=== PATIENT | female | born 1975 | race Caucasian/White ===

== ENCOUNTER 2017-07-29 18:02 | Emergency (ER) | payer OTHER ==
[2017-07-29] MEDS ORDERED: TORAdol 30 mg Injection IM ONE (18:13)
[2017-07-29] MEDS ORDERED: Norflex 60 MG/2 ML IM ONE (18:13)
[2017-07-29] MEDS ORDERED: Norflex 60 MG/2 ML ONE (18:17)
[2017-07-29] MEDS ORDERED: TORAdol 30 mg Injection ONE (18:17)
--- NOTE | 2017-07-29 18:19 | ERPHSYRPT ---
- History of Present Illness Time Seen by Provider: 07/29/17 18:07 Source: patient Exam Limitations: no limitations Physician History: patient developed lower back pain x 4 days; no known injury; does lifting at work but no isolated incident noted; progressive worse over time; no change voiding or BM; no fever or fall or trauma; no prior hx; no numbness or paraesthesia Timing/Duration: day(s) (4), worse Method of Injury: unknown Quality: aching Back Pain Location: lumbar spine (lower midline) Severity of Pain-Max: severe Severity of Pain-Current: severe Modifying Factors: Improves With: other (bending; squatting and sitting aggravate it) Associated Symptoms: lower back pain Previous symptoms: no prior history Allergies/Adverse Reactions: amoxicillin [From Augmentin] Allergy (Verified 07/29/17 18:15) clavulanic acid [From Augmentin] Allergy (Verified 07/29/17 18:15) - Review of Systems Constitutional: No Symptoms Eyes: No Symptoms Ears, Nose, & Throat: No Symptoms Respiratory: No Cough, No Dyspnea, No Wheezing Cardiac: No Chest Pain, No Palpitations, No Syncope Abdominal/Gastrointestinal: No Abdominal Pain, No Nausea, No Vomiting, No Diarrhea Genitourinary Symptoms: No Dysuria, No Frequency, No Hematuria, No Hesitancy, No Incontinence Musculoskeletal: Back Pain (mid lower back), No Neck Pain, No Fall, No Injury Skin: No Symptoms Neurological: No Symptoms Psychological: No Symptoms Endocrine: No Symptoms - Past Medical History Pertinent Past Medical History: No - Past Surgical History Past Surgical History: No - Social History Smoking Status: Current every day smoker Exposure to second hand smoke: Yes Alcohol Use: Socially Drug Use: none Patient Lives Alone: No Significant Family History: no pertinent family hx - Female History Hx Now: No - Nursing Vital Signs Nursing Vital Signs: Initial Vital Signs Temperature 97.9 F 07/29/17 18:16 Pulse Rate 100 H 07/29/17 18:16 Respiratory Rate 18 07/29/17 18:16 Blood Pressure 139/93 07/29/17 18:16 O2 Sat by Pulse Oximetry 98 07/29/17 18:16 Pain Scale Pain Intensity 9 - Physical Exam General Appearance: moderate distress (lower back pain), alert, thin Eye Exam: PERRL/EOMI, eyes nml inspection, No photophobia Ears, Nose, Throat Exam: normal ENT inspection, TMs normal, pharynx normal, moist mucous membranes Neck Exam: normal inspection, non-tender, supple, full range of motion, No JVD Respiratory Exam: normal breath sounds, lungs clear, airway intact, No chest tenderness, No respiratory distress Cardiovascular Exam: regular rate/rhythm, normal heart sounds, normal peripheral pulses, capillary refill <2 sec, No murmur Gastrointestinal Exam: soft, normal bowel sounds, No tenderness, No organomegaly Pelvic Exam: deferred Rectal Exam: deferred Back Exam: normal range of motion, vertebral tenderness (L5-S1 area), No normal inspection (moderate local swelling lower LS midline with tenderness), No CVA tenderness, No rash, No muscle spasm Extremity Exam: normal inspection, normal range of motion, pelvis stable, other (straight leg raising ok bilateral/ knee reflexes wnl), No lynne's sign, No pedal edema Peripheral Pulses: carotid (R): 4+, carotid (L): 4+, femoral (R): 4+, femoral (L ): 4+, dorsalis-pedis (R): 3+, dorsalis-pedis (L): 3+ Neurologic Exam: alert, oriented x 3, cooperative, rough rice grader II-XII nml as tested, normal mood/affect, nml cerebellar function, sensation nml, No nml station & gait (walks slowly and very upright) Skin Exam: normal color, warm, dry, No rash Lymphatic Exam: No adenopathy - Course Nursing assessment & vital signs reviewed: Yes - Radiology Exams L-Spine X-ray Interpretation: Interpreted by me, No Fracture, Other (DJD [id number]) Ordered Tests: Active Orders 24 hr Category Date Time Status Re-Check Vital Signs STAT Care 07/29/17 18:13 Active LUMBAR COMPLETE (MIN 4 VIEWS) Stat Exams 07/29/17 18:13 Taken Medication Summary Discontinued Medications Generic Name Dose Route Start Last Admin Trade Name Aly PRN Reason Stop Dose Admin Ketorolac Tromethamine 60 mg 07/29/17 18:13 07/29/17 18:26 Toradol 30 Mg Injection IM 07/29/17 18:14 60 mg STAT ONE Administration Ketorolac Tromethamine Confirm 07/29/17 18:17 Toradol 30 Mg Injection Administered 07/29/17 18:18 Dose 60 mg .ROUTE .STK-MED ONE Orphenadrine Citrate 60 mg 07/29/17 18:13 07/29/17 18:27 Norflex 60 Mg/2 Ml IM 07/29/17 18:14 60 mg STAT ONE Administration Orphenadrine Citrate Confirm 07/29/17 18:17 Norflex 60 Mg/2 Ml Administered 07/29/17 18:18 Dose 60 mg .ROUTE .STK-MED ONE - Progress Progress: improved, pain not gone completely, re-examined (aftr xr and meds) Progress Note: 07/29/17 18:21 will medicate; get LS xr and recheck 07/29/17 18:55 recheck and discussed findings and treatment plan discussed; instrcutions given Counseled pt/family regarding: diagnosis, need for follow-up, rad results, smoking cessation - Departure Time of Disposition: 18:55 Departure Disposition: Home Clinical Impression: acute lower back pain Condition: Stable Critical Care Time: No Instructions: Low Back Pain (DC) Additional Instructions: rest; warm compresses; follow up lmd recheck 72 hours Back pain instructions. Rest, ice x 24-48 hours, then warm compresses; no heavy lifting (>20#'s) x 3-5 days; call [facility]MD or Occ Med doctor in am for follow up appointment and or referral as needed. Return if problems. Take meds as prescribed. Follow-up with family doctor as directed. Call for appointment. Return if any problems. If you smoke please stop. Call or follow up with your family doctor for assistance if you need it to stop. Please wear your seatbelt when driving. Have a nice day. Thank you for allowing us to participate in your care today. :o) Dr Kevin Banegas Prescriptions: Naproxen Sodium [Anaprox Ds] 550 mg PO Q8HPRN PRN #20 tablet PRN Reason: Pain Chlorzoxazone [Parafon Forte Dsc] 500 mg PO QID #20 tablet Methylprednisolone Packet [Medrol Dosepack] 4 mg PO UD #30 packet
[2017-07-29 18:27] VITALS: BP 139/93; PULSE 100; O2SAT 98
--- NOTE | 2017-07-30 08:33 | XRAY ---
Indication: Low back pain 4 days. No known injury. Comparison: None 5 views of the lumbar spine demonstrates 4 lumbar vertebral segments with partially sacralized L5, mild levorotoscoliosis centered at the L4 level, and minimal L4/L5 anterior endplate spurring. Disc spaces maintained. No acute fracture, subluxation, or pars interarticularis defect. Minimal aortic calcifications and 4 mm left lower pole renal calculus. Impression: Nonacute lumbar spine with chronic features.
== END 2017-07-29 19:17 | disposition home or self-care (01) ==
LOC: ED 18:02
DX: M54.5 Low back pain (principal); F17.200 Nicotine dependence, unspecified, uncomplicated; X50.0XXA Overexertion from strenuous movement or load, initial encounter; Y93.89 Activity, other specified; Y92.89 Other specified places as the place of occurrence of the external cause; Y99.0 Civilian activity done for income or pay
CPT/HCPCS: 72110; 96372; 99283; 99284; J1885; J2360

== ENCOUNTER 2018-02-12 10:56 | Emergency (ER) | payer OTHER ==
--- NOTE | 2018-02-12 11:04 | ERPHSYRPT ---
- History of Present Illness Time Seen by Provider: 02/12/18 11:03 Source: patient Exam Limitations: no limitations Physician History: 42 y/o white female presents with left earache intermittently for 2 weeks. pt has been using tylenol and ibuprofen for pain. sx persist and is worsening assoc with swelling. Timing/Duration: gradual onset, weeks (2) Severity: moderate ENT Location: ear (L) Prearrival Treatment: over the counter meds Associated Symptoms: ear pain (L), No ear pain (R), No change in hearing, No dizziness, No ear drainage, No hearing loss, No motion sickness, No nasal congestion/drainage, No epistaxis, No neck pain Allergies/Adverse Reactions: amoxicillin [From Augmentin] Allergy (Verified 07/29/17 18:15) clavulanic acid [From Augmentin] Allergy (Verified 07/29/17 18:15) Hx Tetanus, Diphtheria Vaccination/Date Given: Yes Hx Influenza Vaccination/Date Given: No Hx Pneumococcal Vaccination/Date Given: No - Review of Systems Constitutional: No Symptoms, No Fever Eyes: No Symptoms, No Discharge, No Eye Pain Ears, Nose, & Throat: Ear Pain (left), No Ear Discharge, No Hearing Changes, No Tinnitus Respiratory: No Symptoms, No Cough, No Dyspnea, No Stridor, No Wheezing Cardiac: No Symptoms Abdominal/Gastrointestinal: No Symptoms, No Abdominal Pain, No Nausea, No Vomiting, No Diarrhea Genitourinary Symptoms: No Symptoms, No Dysuria, No Frequency, No Hematuria Musculoskeletal: No Symptoms, No Back Pain, No Neck Pain, No Fall, No Injury Skin: No Symptoms Neurological: No Symptoms, No Dizziness Psychological: No Symptoms Endocrine: No Symptoms Hematologic/Lymphatic: No Symptoms Immunological/Allergic: No Symptoms All Other Systems: Reviewed and Negative - Past Medical History Pertinent Past Medical History: No Neurological History: No Pertinent History ENT History: No Pertinent History Cardiac History: No Pertinent History Respiratory History: No Pertinent History Endocrine Medical History: No Pertinent History Musculoskeletal History: No Pertinent History GI Medical History: No Pertinent History History: No Pertinent History Psycho-Social History: No Pertinent History Female Reproductive Disorders: No Pertinent History - Past Surgical History Past Surgical History: No Neuro Surgical History: No Pertinent History Cardiac: No Pertinent History Respiratory: No Pertinent History Gastrointestinal: No Pertinent History Genitourinary: No Pertinent History Musculoskeletal: No Pertinent History Female Surgical History: No Pertinent History - Social History Smoking Status: Current every day smoker How long have you smoked: yrs Exposure to second hand smoke: Yes Alcohol Use: Socially Drug Use: none Patient Lives Alone: No Significant Family History: no pertinent family hx - Nursing Vital Signs Nursing Vital Signs: Initial Vital Signs Temperature 98.1 F 02/12/18 10:56 Pulse Rate 78 02/12/18 10:56 Respiratory Rate 18 02/12/18 10:56 Blood Pressure 151/95 02/12/18 10:56 O2 Sat by Pulse Oximetry 97 02/12/18 10:56 Pain Scale Pain Intensity 8 - Physical Exam General Appearance: no apparent distress, alert, anxiety Eye Exam: bilateral eye: normal inspection, PERRL, EOMI Ear Exam: right ear: auricle normal, canal normal, TM normal, left ear: swelling , tenderness, TM red Nasal Exam: normal inspection Throat Exam: normal, pharynx normal, moist mucus membranes, No dental tenderness Neck Exam: normal inspection, non-tender, supple, full range of motion, trachea midline Cardiovascular/Respiratory Exam: chest non-tender, normal breath sounds, regular rate/rhythm Abdominal Exam: non-tender, soft, no organomegaly, no hernia, No guarding, No tenderness Neurologic Exam: alert, oriented x 3, cooperative, senior consultant II-XII nml as tested Skin Exam: normal color, warm, dry SpO2 Interpretation: normal Oxygen Delivery: Room Air - Course Nursing assessment & vital signs reviewed: Yes - Progress Counseled pt/family regarding: diagnosis, need for follow-up - Departure Time of Disposition: 11:55 Departure Disposition: Home Clinical Impression: Otitis media Condition: Stable Critical Care Time: No Referrals: DOCTOR,NO FAMILY [Primary Care Provider] - Additional Instructions: add ibuprofen for pain. follow up with primary doctor for further management. Prescriptions: Hydrocodone/APAP 5/325 [[place] 5/325 mg] 1 each PO Q12H PRN PRN #6 tablet MDD 2 PRN Reason: Pain Azithromycin 250 mg [Zithromax 250 MG TABLET] 250 mg PO ZPACK #6 tablet Prednisone 10 mg [Deltasone 10 mg] 10 mg PO TID #12 tablet
[2018-02-12 12:10] VITALS: BP 135/85; PULSE 69; O2SAT 99
== END 2018-02-12 12:10 | disposition home or self-care (01) ==
LOC: ED 10:56
DX: H66.92 Otitis media, unspecified, left ear (principal)
CPT/HCPCS: 99283